=== PATIENT | male | born 1990 | race Caucasian/White ===

== ENCOUNTER 2020-09-27 22:00 | Emergency (ER) | payer SELFPAY ==
[2020-09-27 22:08] VITALS: BP 129/83; PULSE 114; RESP 22; TEMP 38.1; O2SAT 98; BMI 27.4
--- NOTE | 2020-09-27 22:13 | XRR_ITS ---
PROCEDURE INFORMATION: Exam: XR Chest Exam date and time: 09/27/2020 10:13 PM Age: 29 years old Clinical indication: Pain; Fever and other: Chills; Other: Body aches; Additional info: Fever, chills and body aches TECHNIQUE: Imaging protocol: XR of the chest. Views: 1 view. COMPARISON: CT abdomen pelvis w con* [id number] 02/26/2015 8:44 AM FINDINGS: Lungs: Unremarkable. No consolidation. Pleural spaces: Unremarkable. No pleural effusion. No pneumothorax. Heart/Mediastinum: Unremarkable. No cardiomegaly. Bones/joints: Unremarkable. XR/XR chest 1V portable [id number] IMPRESSION: Lungs are clear
--- NOTE | 2020-09-27 22:33 | ED_ITS ---
HPI - COVID General: Chief Complaint: COVID symptoms Stated Complaint: Fever, body aches, possible covid Time Seen by Provider: 09/27/20 22:13 Triage information: Has fever, cough or shortness of breath . No known COVID + exposure last 14 days History of Present Illness: HPI Narrative: Patient is a 29-year-old male who comes to the ED with fever, body aches and diarrhea. Patient says symptoms started yesterday. 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 He denies any known contact with COVID-19 positive patients. He reports having many episodes of diarrhea over the past 24 hours. He states whenever he tries to eat or drink something he gets nauseous, but he has not had any episodes of emesis. He says that he has not had much to eat or drink since start of symptoms yesterday. He denies any upper respiratory symptoms such as a cough, nasal drainage or congestion, sore throat. Denies any abdominal pain, chest pain or shortness of breath. COVID 19 common symptoms: positive fever(s), body aches, nausea and diarrhea; negative chills, non-productive cough, productive cough, dyspnea, fatigue, headache(s), throat pain, nasal congestion or vomiting COVID 19 other sytmptoms: negative chest pain COVID Results: SARS-CoV-2 Antigen (Rapid) Negative (Negative) 09/27/20 22:50 09/27/20 Review of Systems Const: Reports: fever(s) and body aches; Denies: chills or fatigue Eyes: Denies: change in vision or eye discomfort ENMT: Denies: throat pain, odynophagia, nasal discharge or nasal congestion Card: Denies: chest pain, palpitations, edema, swelling of feet/ankles, dyspnea on exertion or orthopnea Resp: Denies: dyspnea, productive cough or non-productive cough GI: Reports: nausea and diarrhea; Denies: abdominal pain, vomiting, constipation or hematochezia : Denies: flank pain, difficulty urinating, dysuria or hematuria Musc: Denies: neck pain, back pain or extremity swelling Skin/Breast: Denies: rash or new lesions Neuro: Denies: headache(s), numbness in extremities or weakness in extremities Physical Exam Const: COMMON NORMALS: no acute distress, patient oriented x3 and alert GENERAL APPEARANCE: cooperative and comfortable HENMT: COMMON NORMALS: normocephalic HEAD & SCALP: normocephalic MOUTH: moist mucous membranes abnormal (Mild signs of dehydration) THROAT: posterior oropharynx normal and uvula midline Eye: COMMON NORMALS: Equal, round and reactive pupils present PUPIL: Yes Equal, round and reactive pupils present Neck/C-Spine: COMMON NORMALS: supple GENERAL: Yes normal visual inspection Resp: COMMON NORMALS: normal respiratory effort, No retractions, No use of accessory muscles and clear to auscultation bilaterally AUSCULTATION: clear to auscultation bilaterally Cardio: COMMON NORMALS: regular rate, regular rhythm, S1 normal heart sound present, S2 normal heart sound present, No gallops present (Cardio), No clicks present (Cardio), No murmurs present (Cardio) and Peripheral pulses 2+ throughout RATE: regular rate RHYTHM: regular rhythm HEART SOUNDS: S1 normal heart sound present and S2 normal heart sound present PERIPHERAL PULSES: Peripheral pulses 2+ throughout GI: COMMON NORMALS: Normal to inspection, nondistended, normoactive bowel sounds present, Soft to palpation, non-tender and no masses PALPATION: Yes Soft to palpation : COMMON NORMALS: Yes no CVA tenderness BLADDER/KIDNEY EXAM: Yes no CVA tenderness Back/Pelvis: COMMON NORMALS: no CVA tenderness Extremity: COMMON NORMALS: normal to inspection Neuro: COMMON NORMALS: patient oriented x3 and moves all extremities SENSORIUM/ORIENTATION: Yes alert Skin: GENERAL SKIN EXAM: dry skin Course Reevaluation(s): Reevaluation #1: Patient reports that after getting IV fluids Zofran and Tylenol his symptoms have improved greatly. Time: 23:42 Vital Signs: Vital signs: Vital Signs Temperature 100.5 F H 09/27/20 22:08 Pulse Rate 96 09/27/20 23:53 Respiratory Rate 18 09/27/20 23:53 Blood Pressure 111/75 09/27/20 23:53 Pulse Oximetry 96 09/27/20 23:53 MDM - COVID MDM Narrative: Medical decision making narrative: Patient is a 29-year-old male comes to the ED with fever, body aches, nausea and diarrhea. Exam findings show a 29-year-old male that appears healthy and in no acute distress or pain. Exam benign and patient has no abdominal tenderness. White blood cell count of 11.9 and the rest of CBC and CMP were unremarkable. Covid negative, influenza negative. Chest x-ray showed no acute findings. Patient was given 1 L of IV fluids, Zofran and Tylenol while here in the ED and he says his symptoms improved. Vitals at discharge, temp 100.5, respirations 18, pulse 96, blood pressure 111/75 and O2 sat 96% on room air. Patient diagnosed with viral syndrome and discharged home with a prescription for Reglan. He was told to follow-up with his PCP in 7 to 10 days for reevaluation. Return to ED precautions given. Patient understood and agreed with plan. Lab Data: Attestation: I reviewed the patient's lab results. Labs: Lab Results 09/27/20 09/27/20 09/27/20 Range/Units 22:40 22:40 22:40 WBC 11.9 H (4.0-10.0) 10^3/ uL RBC 4.44 (4.1-5.3) 10^6/u L Hgb 13.7 (11.7-16.6) g/dL Hct 40.4 L (42.0-52.0) % MCV 91.0 (80-94) fL MCH 30.9 (28.0-34.0) pg MCHC 33.9 (30.0-36.0) g/dL RDW 11.9 L (12.1-15.1) % Plt Count 195 (130-400) 10^3/c mm MPV 9.7 (7.4-10.4) fL Neut % (Auto) 88.0 % Lymph % (Auto) 6.4 % [place] % (Auto) 4.9 % Eos % (Auto) 0.1 % Baso % (Auto) 0.3 % Neut # (Auto) 10.51 H (1.8-7.7) 10^3/u L Lymph # (Auto) 0.8 (0.8-4.8) 10^3/u L [place] # (Auto) 0.6 (0.2-0.9) 10^3/u L Eos # (Auto) 0.0 (0.0-0.8) 10^3/u L Baso # (Auto) 0.0 (0.0-0.1) 10^3/u L Nucleated RBC % (a uto) 0 % Nucleated RBCs # 0.0 /100WBC Sodium 135 L (136-145) mmol/L Potassium 3.6 (3.5-5.1) mmol/L Chloride 99 (98-107) mmol/L Carbon Dioxide 25 (22-29) mmol/L Anion Gap 14.6 (5-19) BUN 14 (6-20) mg/dL Creatinine 1.0 (0.7-1.2) mg/dL GFR Calculation 87.2 L (90-130) mL/min Glucose 110 (65-115) mg/dL Calculated Osmolal ity 281 L (285-295) mOsm/k g Calcium 9.2 (8.5-10.5) mg/dL Total Bilirubin 0.5 (0.15-1.2) mg/dL AST 24 (0-40) U/L ALT 25 (0-41) U/L Alkaline Phosphata se 88 (40-130) IU/L Total Protein 7.1 (6.6-8.7) g/dL Albumin 4.5 (3.5-5.2) g/dL Globulin 2.6 (1.3-4.6) g/dL Influenza Type A A g Negative (Negative) Influenza Type B A g Negative (Negative) SARS-CoV-2 Ag (Rap id) (Negative) 09/27/20 Range/Units 22:50 WBC (4.0-10.0) 10^3/ uL RBC (4.1-5.3) 10^6/u L Hgb (11.7-16.6) g/dL Hct (42.0-52.0) % MCV (80-94) fL MCH (28.0-34.0) pg MCHC (30.0-36.0) g/dL RDW (12.1-15.1) % Plt Count (130-400) 10^3/c mm MPV (7.4-10.4) fL Neut % (Auto) % Lymph % (Auto) % [place] % (Auto) % Eos % (Auto) % Baso % (Auto) % Neut # (Auto) (1.8-7.7) 10^3/u L Lymph # (Auto) (0.8-4.8) 10^3/u L [place] # (Auto) (0.2-0.9) 10^3/u L Eos # (Auto) (0.0-0.8) 10^3/u L Baso # (Auto) (0.0-0.1) 10^3/u L Nucleated RBC % (a uto) % Nucleated RBCs # /100WBC Sodium (136-145) mmol/L Potassium (3.5-5.1) mmol/L Chloride (98-107) mmol/L Carbon Dioxide (22-29) mmol/L Anion Gap (5-19) BUN (6-20) mg/dL Creatinine (0.7-1.2) mg/dL GFR Calculation (90-130) mL/min Glucose (65-115) mg/dL Calculated Osmolal ity (285-295) mOsm/k g Calcium (8.5-10.5) mg/dL Total Bilirubin (0.15-1.2) mg/dL AST (0-40) U/L ALT (0-41) U/L Alkaline Phosphata se (40-130) IU/L Total Protein (6.6-8.7) g/dL Albumin (3.5-5.2) g/dL Globulin (1.3-4.6) g/dL Influenza Type A A g (Negative) Influenza Type B A g (Negative) SARS-CoV-2 Ag (Rap id) Negative (Negative) Imaging Data: CXR: Attestation: I personally reviewed and interpreted this imaging study as follows: Radiologist's impression: [address] [address] XRay Report Signed Patient: Yrn Ford Unit #: [id number] : 1990 Age/Sex: 29 / M ADM Date: 09/27/20 Loc: ER Room/Bed: Attending Dr: Ordering Provider/Ordering MD: Jose Miguel Armstrong Date of Service: 09/27/20 Procedure(s): XR chest 1V portable [id number] Accession Number(s): [id number] Report Number: [id number] PROCEDURE INFORMATION: Exam: XR Chest Exam date and time: 09/27/2020 10:13 PM Age: 29 years old Clinical indication: Pain; Fever and other: Chills; Other: Body aches; Additional info: Fever, chills and body aches TECHNIQUE: Imaging protocol: XR of the chest. Views: 1 view. COMPARISON: CT abdomen pelvis w con* [id number] 02/26/2015 8:44 AM FINDINGS: Lungs: Unremarkable. No consolidation. Pleural spaces: Unremarkable. No pleural effusion. No pneumothorax. Heart/Mediastinum: Unremarkable. No cardiomegaly. Bones/joints: Unremarkable. XR/XR chest 1V portable [id number] IMPRESSION: Lungs are clear Dictated By: Melvin Pedraza MD Signed By: Melvin Pedraza MD Signed Date/Time: 09/27/202327 DD/ 26 COVID Results: SARS-CoV-2 Antigen (Rapid) Negative (Negative) 09/27/20 22:50 09/27/20 Discharge Plan Discharge Patient Disposition: Home Clinical Impression: Viral syndrome Condition: Stable Prescriptions: New Reglan 10 mg tablet 10 mg PO Q6H PRN (Reason: nausea and vomiting) Qty: 20 RF: 0 No Action No Known Home Medications RF: 0 Discharge Orders: Discharge ED (Routine); Ordered 09/27/20 Ordered By: Jose Miguel Armstrong Discharge Diet: Regular Discharge Activity: Increase activity as tolerated Patient Instructions: Viral Syndrome (ED) Activity Restrictions/Additional Instructions: Follow-up with medical provider as directed in 7-10 days for reevaluation. Take medications as prescribed. Make sure you drink plenty of fluids and stay hydrated. Take [id number] Motrin or Tylenol for fevers or pain. Return to the ER or your medical provider if condition worsens. Please read and understand discharge instructions. Thank you for choosing [facility] for your healthcare needs today. Please realize this is an emergency room and that we are providing you with a medical screening exam and this may not be complete and all inclusive of all the testing and or work up that you may need to determine your ailment or severity of your illness. It is very important that you follow up as instructed or that you return to the Emergency Department should you have concerns or if your condition changes or worsens in any way. Coding Level of Care Code ED [employer] for [employer] Fwd Exam Comprehensive
[2020-09-27 22:53] LABS: Basophils % 0.3 %; Eosinophils % 0.1 %; Hematocrit 40.4 % (42.0-52.0); Hemoglobin 13.7 g/dL (11.7-16.6); Lymphocytes # 0.8 10^3/uL (0.8-4.8); Lymphocytes % 6.4 %; Mean Corpuscular HGB Conc 33.9 g/dL (30.0-36.0); Mean Corpuscular Hemoglobin 30.9 pg (28.0-34.0); Mean Platelet Volume 9.7 fL (7.4-10.4); Monocytes # 0.6 10^3/uL (0.2-0.9); Monocytes % 4.9 %; Neutrophils # 10.51 10^3/uL (1.8-7.7); Nucleated Red Blood Cells % 0 %; Platelet Count 195 10^3/cmm (130-400); Red Blood Count 4.44 10^6/uL (4.1-5.3); Red Cell Distribution Width 11.9 % (12.1-15.1); White Blood Count 11.9 10^3/uL (4.0-10.0)
[2020-09-27] MEDS: acetaminophen 500 mg Tablet 1000 MG PO (22:54)
[2020-09-27] MEDS: sodium chloride 0.9% 1,000 ML 999 ML IV (22:54)
[2020-09-27] MEDS: ondansetron 2 mg/ML SDV 2 mL 4 MG IVP (22:55)
[2020-09-27 23:01] VITALS: O2SAT 98
--- NOTE | 2020-09-27 23:03 | PC.NURSE ---
Reports he had covid in November 2019 when I was in custodial. States this feels just the same.
[2020-09-27 23:20] LABS: Alanine Aminotransferase 25 U/L (0-41); Albumin Level 4.5 g/dL (3.5-5.2); Alkaline Phosphatase 88 IU/L (40-130); Anion Gap 14.6 (5-19); Aspartate Amino Transferase 24 U/L (0-40); Blood Urea Nitrogen 14 mg/dL (6-20); Calcium 9.2 mg/dL (8.5-10.5); Carbon Dioxide 25 mmol/L (22-29); Chloride 99 mmol/L (98-107); Globulin 2.6 g/dL (1.3-4.6); Glomerular Filtration Rate 87.2 mL/min (90-130); Glucose 110 mg/dL (65-115); Osmolality Calculated 281 mOsm/kg (285-295); Potassium 3.6 mmol/L (3.5-5.1); Sodium 135 mmol/L (136-145); Total Bilirubin 0.5 mg/dL (0.15-1.2); Total Protein 7.1 g/dL (6.6-8.7)
[2020-09-27 23:22] LABS: Influenza A by IFA Negative (Negative); Influenza B by IFA Negative (Negative)
[2020-09-27 23:22] LABS: SARS Covid-2 Antigen Negative (Negative)
[2020-09-27 23:45] VITALS: BP 110/42; PULSE 95; RESP 20; O2SAT 95
[2020-09-27 23:53] VITALS: BP 111/75; PULSE 96; RESP 18; O2SAT 96
== END 2020-09-27 23:55 | disposition home or self-care (01) ==
PROVIDERS: Emergency Provider Physician Assistant
DX: B34.9 Viral infection, unspecified (principal)
CPT/HCPCS: 71045; 80053; 85025; 87426; 87804; 96361; 96374; 99283; J2405; J7030

== ENCOUNTER → 2021-05-27 12:41 | Outpatient (BNVA) | payer SELFPAY | PROVIDERS: Visit Provider Registered Nurse Neonatal Intensive Care | DX: R07.9 Chest pain, unspecified (principal) | CPT/HCPCS: 80053; 80061; 85025 ==

== ENCOUNTER → 2021-09-12 16:52 | Outpatient (BNVA) | payer SELFPAY | PROVIDERS: Visit Provider Nurse Practitioner Family | DX: R10.9 Unspecified abdominal pain (principal); R05.9 Cough, unspecified | CPT/HCPCS: 71046; 80053; 85025 ==